=== PATIENT | female | born 1970 | race Caucasian/White ===

== ENCOUNTER 2021-05-10 08:48 | Emergency (ER) | payer BC ==
[2021-05-10] MEDS ORDERED: Hydrocortisone Sod Succ/PF 100 mg/2 ml Vial ONE (09:40)
[2021-05-10 09:44] LABS: #Basophils 0.1 10x3/uL (0.0-0.2); #Eosinphils 0.1 10x3/uL (0.0-0.5); #Monocytes 0.5 10x3/uL (0.0-1.1); #Neutrophils 6.8 10x3/uL (1.5-8.4); %Basophils 0.5 % (0.0-2.0); %Eosinophils 0.6 % (0.0-6.0); %Lymphocytes 20.7 % (18.0-47.0); %Monocytes 4.8 % (0.0-10.0); Hemoglobin 14.7 g/dL (12.0-15.5); Mean Corpuscular HGB CONC 34.2 g/dL (32.0-36.0); Mean Corpuscular Hemoglobin 32.6 pg (27.0-33.0); Mean Corpuscular Volume 95.3 fl (81.6-98.3); Mean Platelet Volume 9.4 fl (7.4-10.4); Platelet Count 308 10x3/uL (150-450); RBC Distribution Width 12.6 % (11.5-14.5); Red Blood Cell (RBC) Count 4.51 10x6/uL (3.90-5.03); White Blood Cell (WBC) Count 9.4 10x3/uL (3.5-10.5)
[2021-05-10 09:55] LABS: ALT (SGPT) 37 U/L (8-55); AST (SGOT) 29 U/L (5-34); Albumin 4.1 g/dL (3.5-5.0); Alkaline Phosphatase 54 U/L (40-110); Anion Gap 13 mmol/L (10-20); BUN (Urea Nitrogen) 23 mg/dL (9.8-20.1); Bilirubin, Total 0.3 mg/dL (0.2-1.2); Calc. Creatinine Clearance 0 mL/min (70-130); Calcium 9.4 mg/dL (7.8-10.44); Carbon Dioxide 25 mmol/L (22-29); Chloride 104 mmol/L (98-107); Globulin 3.2 g/dL (2.4-3.5); Glucose 96 mg/dL (70-105); Protein, Total 7.3 g/dL (6.0-8.3); Sodium 138 mmol/L (136-145)
[2021-05-10 10:04] LABS: Bilirubin Neg (Negative); Blood, Urine 25 (Negative); Clarity Clear (Clear); Glucose, Urine (Dipstick) Normal (Negative); Ketone, Urine Negative (Negative); Leukocyte Negative (Negative); Nitrite Negative (Negative); Protein, Urine (Dipstick) Negative (Neg-Trace); Urobilinogen Normal mg/dL (Less than 2)
[2021-05-10 10:33] LABS: Bacteria/HPF 2+ HPF (None Seen); WBC/HPF 0-3 HPF (0-3)
[2021-05-10] MEDS ORDERED: Ondansetron PF 4 MG/2 ML Vial IVP PRN (11:14)
[2021-05-10] MEDS ORDERED: Acetaminophen 325 MG TAB PO PRN (11:14)
[2021-05-10] MEDS ORDERED: Ondansetron ODT 4 MG TAB PO PRN (11:14)
[2021-05-10] MEDS ORDERED: Sodium Chloride 0.9% 1,000 ML IV SCH (11:15)
[2021-05-10 11:58] LABS: Free T4 (Free Thyroxine) 1.08 ng/dL (0.70-1.48); Thyroid Stimulating Hormone 1.3103 uIU/mL (0.35-4.94)
[2021-05-10 12:16] LABS: Lipase 67 U/L (8-78)
[2021-05-10 12:19] LABS: Troponin I Less than 0.010 ng/mL (< 0.028)
[2021-05-10] MEDS ORDERED: Famotidine 20 MG TAB PO SCH (21:00)
[2021-05-10] MEDS ORDERED: Famotidine/PF 20 mg/2ml Vial SLOW IVP SCH (21:00)
== END 2021-05-10 12:18 | disposition home or self-care (01) ==
LOC: CSHERS 08:48
DX: E27.1 Primary adrenocortical insufficiency (principal); I10 Essential (primary) hypertension; E06.3 Autoimmune thyroiditis; Z79.899 Other long term (current) drug therapy
CPT/HCPCS: 80053; 81003; 81015; 82533; 83690; 83735; 84439; 84443; 84484; 85025; 87086; 93005; 96374; J1720; J7050